=== PATIENT | female | born 1975 | race African-American/Black ===

== ENCOUNTER 2021-06-15 13:08 | Emergency (ER) | payer OTHER ==
[2021-06-15 13:41] VITALS: BP 116/79; PULSE 73; TEMP 98.3; BMI 30.7
== END 2021-06-15 14:16 | disposition home or self-care (01) ==
LOC: JERFT 13:08
DX: H60.501 Unspecified acute noninfective otitis externa, right ear (principal)
CPT/HCPCS: 99283-25

== ENCOUNTER 2024-07-21 21:22 | Emergency (ER) | payer SELFPAY ==
[2024-07-21 21:33] VITALS: BP 108/70; PULSE 81; RESP 18; TEMP 98.4; BMI 32.9
[2024-07-21] MEDS: IBUPROFEN 600 MG TABLET (FP) PO ONE (22:45)
[2024-07-21] MEDS ORDERED: IBUPROFEN 600 MG TABLET (FP) PO ONE (22:45)
== END 2024-07-21 23:29 | disposition home or self-care (01) ==
LOC: JERFT 21:22
DX: M25.561 Pain in right knee (principal); M79.642 Pain in left hand; V43.52XA Car driver injured in collision with other type car in traffic accident, initial encounter; Y92.410 Unspecified street and highway as the place of occurrence of the external cause
CPT/HCPCS: 73130-TC-LT-FY; 73562-TC-RT-FY; 99284-25